=== PATIENT | male | born 1940 | race African-American/Black ===

== ENCOUNTER → 2017-09-16 | Outpatient (CLI) | payer OTHER ==
[~2017-09-16] MED LIST: ADULT LOW DOSE81 M1 PO; CIPRO500 MG PO; COUMADIN5 MG PO; DECADRON4 MG PO; ELIQUIS5 MG PO; EPIPEN ADU0.3 MG/0.3 IM; HYDROCODON-ACE1 EAC8 PO; LORTAB 7.5-3251 EACH PO; LOVASTATIN20 MG PO; LOVENOX100 MG/1 M SC; MEVACOR20 MG PO; NORCO 5/3251 TABLET PO; PEPCID40 MG PO; PREDNISONE20 MG PO; PRILOSEC20 MG PO; PROMETHAZINE HC25 M1 PO; ST. JOSEPH ASPI81 MG PO; ZYRTEC10 M3 PO
== END | disposition home or self-care (01) ==
LOC: OPR 08:42 → EDSTATUS 09:00 → OPR 09:00
DX: C78.7 Secondary malignant neoplasm of liver and intrahepatic bile duct (principal); C78.00 Secondary malignant neoplasm of unspecified lung; C78.89 Secondary malignant neoplasm of other digestive organs; E78.5 Hyperlipidemia, unspecified; E78.00 Pure hypercholesterolemia, unspecified; Z87.891 Personal history of nicotine dependence; Z86.718 Personal history of other venous thrombosis and embolism; Z86.711 Personal history of pulmonary embolism; Z79.01 Long term (current) use of anticoagulants
CPT/HCPCS: 77012; 88307; 88341 TC; 88342 TC; J3010

== ENCOUNTER → 2017-10-04 | Outpatient (CLI) | payer OTHER ==
[~2017-10-04] VITALS: Ht 185.4 cm; Wt 95.2 kg
== END | disposition home or self-care (01) ==
LOC: AMB 08:54
DX: C25.9 Malignant neoplasm of pancreas, unspecified (principal); Z85.528 Personal history of other malignant neoplasm of kidney; Z90.5 Acquired absence of kidney; Z87.891 Personal history of nicotine dependence; Z86.711 Personal history of pulmonary embolism; Z86.718 Personal history of other venous thrombosis and embolism; Z79.01 Long term (current) use of anticoagulants
CPT/HCPCS: 88173; 88307; J0330; J1100; J2250; J2405; J2710; J3010; J7643

== ENCOUNTER 2017-10-20 19:33 | Inpatient (IN) | payer OTHER ==
[~2017-10-20] VITALS: Ht 182.9 cm; Wt 87.6 kg
[2017-10-20 20:21] LABS: HEMATOCRIT 42.5 % (38.0-50.0); HEMOGLOBIN 14.4 G/DL (12.5-16.6); MCH 30.6 PG (29.0-34.0); MCHC 33.9 G/DL (30.0-36.0); MCV 90.2 FL (86-99); PLATELET COUNT 113 K/uL (156-360); RBC DIS.WIDTH-CV 12.9 % (11.8-14.6); RBC DIS.WIDTH-SD 42.3 % (39-53); RED BLOOD COUNT 4.71 M/uL (4.00-5.50); WHITE BLOOD COUNT 7.7 K/uL (4.1-10.2)
[2017-10-20 20:32] LABS: INTER. NORMALIZED RATIO 1.4
[2017-10-20 20:37] LABS: CHLORIDE 105 mEq/L (99-109); POTASSIUM 3.9 mEq/L (3.7-5.4); SODIUM 140 mEq/L (136-147)
[2017-10-20 20:38] LABS: GLUCOSE 178 mg/dL (70-99)
[2017-10-20 20:42] LABS: CREATININE 1.7 mg/dL (0.6-1.3); GFR ESTIMATE (CALCULATED) 51 mL/min/ (58.99-99999)
[2017-10-20 20:43] LABS: UREA NITROGEN (BUN) 20 mg/dL (9-23)
[2017-10-20 20:51] LABS: ALBUMIN 4.1 g/dL (3.2-4.8)
[2017-10-20 20:54] LABS: TOTAL PROTEIN 7.9 g/dL (6.4-8.3)
[2017-10-20 20:56] LABS: TOTAL BILIRUBIN 1.4 mg/dL (0.0-1.0)
[2017-10-20 20:57] LABS: ALKALINE PHOSPHATASE 154 IU/L (3-129)
[2017-10-20 20:59] LABS: AST (GOT) 27 IU/L (2-34)
[2017-10-20 21:00] LABS: ALT (GPT) 28 IU/L (3-49); DIRECT BILIRUBIN 0.5 mg/dL (0.0-0.3)
[2017-10-20 21:06] LABS: TROP-I INTERPRETATION NEGATIVE; TROPONIN-I 0.01 ng/mL (0.0-0.30)
[2017-10-20] MEDS ORDERED: COMPAZINE5 MG PO (23:12)
[2017-10-20] MEDS ORDERED: ROXICODONE5 MG PO (23:12)
[2017-10-20] MEDS ORDERED: XALATAN2.5 ML BOTH EYES (23:12)
[2017-10-21 02:45] LABS: INTER. NORMALIZED RATIO 1.5
[2017-10-21 02:58] LABS: PTT 134.2 SEC (25-37)
[2017-10-21 07:10] VITALS: BP 147/76
[2017-10-21 16:46] VITALS: BP 169/85
[2017-10-21 23:25] VITALS: BP 111/57
[2017-10-22 07:20] VITALS: BP 166/88
[2017-10-22 15:45] VITALS: BP 155/79
[2017-10-22 22:51] VITALS: BP 134/72
[2017-10-23 06:52] LABS: HEMATOCRIT 37.3 % (38.0-50.0); MCH 29.8 PG (29.0-34.0); MCHC 33.2 G/DL (30.0-36.0); MCV 89.7 FL (86-99); PLATELET COUNT 143 K/uL (156-360); RBC DIS.WIDTH-CV 12.5 % (11.8-14.6); RBC DIS.WIDTH-SD 41.3 % (39-53); RED BLOOD COUNT 4.16 M/uL (4.00-5.50); WHITE BLOOD COUNT 5.7 K/uL (4.1-10.2)
[2017-10-23 07:03] LABS: CHLORIDE 107 MEQ/L (99-109); CREATININE 1.3 MG/DL (0.6-1.3); GFR ESTIMATE (CALCULATED) > 59 mL/min/ (58.99-99999); POTASSIUM 4.2 MEQ/L (3.7-5.4); SODIUM 141 MEQ/L (136-147); UREA NITROGEN (BUN) 15 mg/dL (9-23)
[2017-10-23 07:16] LABS: GLUCOSE 94 mg/dL (70-99)
[2017-10-23 07:17] LABS: HEMOGLOBIN 12.4 G/DL (12.5-16.6)
[2017-10-23 07:25] VITALS: BP 148/88
[2017-10-24] MEDS ORDERED: LOVENOX150 MG/1 M SC (13:23)
== END 2017-10-23 12:25 | disposition home or self-care (01) | DRG 176 ==
LOC: EME 19:33 → 5EAST 22:30 → EDOF 22:30 → ENRESERV 22:51 → 5EAST 10-21 00:38
PROVIDERS: Emergency Medicine; Internal Medicine; Surgery
DX: I26.99 Other pulmonary embolism without acute cor pulmonale (principal); C25.9 Malignant neoplasm of pancreas, unspecified; C78.7 Secondary malignant neoplasm of liver and intrahepatic bile duct; C79.51 Secondary malignant neoplasm of bone; C78.00 Secondary malignant neoplasm of unspecified lung; I87.8 Other specified disorders of veins; E78.5 Hyperlipidemia, unspecified; Z85.46 Personal history of malignant neoplasm of prostate; Z85.528 Personal history of other malignant neoplasm of kidney; Z90.5 Acquired absence of kidney; Z87.891 Personal history of nicotine dependence; Z79.01 Long term (current) use of anticoagulants; Z86.72 Personal history of thrombophlebitis; Z86.711 Personal history of pulmonary embolism
CPT/HCPCS: 71275; 80048; 80076; 83605; 83880; 84484; 85027; 85379; 85610; 85730; 99281; 99284; C1751; C1769; J0690; J1650